=== PATIENT | female | born 1990 | race Caucasian/White ===

== ENCOUNTER 2017-04-07 06:00 | Inpatient (IN) ==
[2017-04-07] MEDS ORDERED: METHYLERGONOVINE 0.2 MG/ML INJECTION IM PRN (06:22)
[2017-04-07] MEDS ORDERED: ACETAMINOPHEN 500 MG TABLET PO PRN ×3 (06:22→14:20)
[2017-04-07] MEDS ORDERED: LIDOCAINE 1% (10mg/ml) 2mL INJ PF SDV ID PRN (06:22)
[2017-04-07] MEDS ORDERED: MAG-AL + SIM ORAL LIQUID 30ml PO PRN ×3 (06:22→14:20)
[2017-04-07] MEDS ORDERED: D5LR 1,000 ML IV PRN (06:22)
[2017-04-07] MEDS ORDERED: CALCIUM CARBONATE Chewable 500mg TABLET PO PRN ×3 (06:22→14:20)
[2017-04-07] MEDS ORDERED: OXYTOCIN DRIP 30 UNIT/500 ML ML IV PRN (06:22)
[2017-04-07] MEDS ORDERED: CARBOPROST 250 MCG/ML INJECTION IM PRN (06:22)
--- OUTSIDE RECORDS SUMMARY | 2017-04-07 06:23 | External Medical Summary | Continuity of Care Document ---
:1990 Author Organization [facility] Address [address] [place], [place] [id number] Phone Care Team Providers Name Role Phone Dary Barnes MD Unavailable Unavailable Allergies, Adverse Reactions, Alerts Substance Reaction Severity Status Penicillins Unknown Active Medications Medication Instructions Dosage Effective Dates Status Comments (start - stop) Fioricet 50 mg-300 take 1 - 2 capsule Not Available - Active mg-40 mg capsule by oral route every 4 hours as needed not to exceed 6 capsules per 24hrs COMPLETE - Active (unknown strength) Diphedryl 25 mg take 1 capsule by 25 MG - Active capsule oral route every hour as needed as needed Problems Condition Effective Dates (start - stop) Clinical Status Encntr screen for infections w sexl - mode of transmiss Encounter for screening for oth - infec/parastc diseases Encounter for suprvsn of normal - , first trimester Encounter for screening of - mother 8 weeks gestation of - Encounter for suprvsn of normal - , second trimester 24 weeks gestation of - Candidiasis of vulva and vagina Other pruritus Cluster headache syndrome, - unspecified, not intractable Encounter for suprvsn of normal - , third trimester 28 weeks gestation of - Anogenital pruritus, unspecified Vaginal Discharge or Lesion Encounter for suprvsn of normal - , first trimester 12 weeks gestation of - Encounter for suprvsn of normal - , third trimester 30 weeks gestation of - Encounter for suprvsn of normal - , third trimester 32 weeks gestation of - Encounter for suprvsn of normal - , third trimester 30 weeks gestation of - Asthma Active Migraines Active Active Procedures Procedure Date Unknown Results Test Name Date and Time Measure Units Reference Range Abnormal Flag Comments Unknown Advance Directives Directive Yes / No Effective Date File Name Unknown Encounters Encounter Practice Location Reason(s) Diagnoses Date Provider Care Team Description For Visit Members Mary Ellen Nick Encounter for Jolie Referring In Womens suprvsn of normal 2-201 Fabiola. Provider: Mayco MARCOS, , third 7 700 [address] [id number] weeks Medical Jolie L, 1522, gestation of Center [address] [place] [address], Daniel Alcazar [place], 120, [place] , [place], [facility] 120, [place], tel:[phone] [place], , [place]. [id number]. tel: tel:[phone] Mary Ellen Nick Encounter for Jolie Referring In Womens suprvsn of normal 0-201 Fabiola. Provider: Mayco MARCOS, , third 7 700 [address] [email or web address] weeks Medical Jolie L, 1522, gestation of Center [address] [place] [address], Daniel Alcazar [place], 120, [place] [id number], [place], [facility] 120, [place], tel:[phone] [place], , [place]. [id number]. tel: tel:[phone] Mary Ellen Nick Encounter for Jolie Referring In Womens Ultrasound suprvsn of normal 0-201 Fabiola. Provider: Mayco MARCOS, , third 7 700 [address] [id number] weeks Medical Jolie L, 1522, gestation of Center [address] [place], [place] [address]ta, Daniel Alcazar [place], 120, [place] [id number], [place], [facility] 120, [place], tel:[phone] [place], , [place]. [id number]. tel: tel:[phone] Mary Ellen Nick Hayden-2 Jolie In Womens 0-201 Fabiola. Health HEMANT, 7 700 PO Box Medical 15[address], [place] [address] [place], [facility] [place], 120, [id number], [place], [place], tel:[phone] , [place]. tel: [phone] Mary Ellen Nick Cluster headache Hayden-0 Jolie Referring In Womens syndrome, 6-201 Fabiola. Provider: Health HEMANT, unspecified, not 7 700 [address] PO Box intractableEncoun Medical Jolie L, 1522, ter for suprvsn Center [address] [place] [address], of normal Dr [facility] [place], , third 120, [place] [id number], [email or web address] weeks Nick [facility] 120, [place] gestation of [place], tel:+[phone] CT, , [place]. [id number]. tel: tel:[phone] Mary Ellen Nick Waylon-1 Jolie In Womens 2-201 Fabiola. Health HEMANT, 7 700 PO Box Medical 15[address], [place] [address] [place], [facility], 120, [id number], [place], [place], tel:[phone] , [place]. tel: [phone] Mary Ellen Nick Encounter for Waylon-0 Jolie Referring In Womens suprvsn of normal 8-201 Fabiola. Provider: Mayco MARCOS, , second 7 700 [address] [email or web address] weeks Medical Jolie L, 1522, gestation of [address], Dr [facility], 120, [place] [id number], [place] [facility] 120, [place], tel:[phone] [place], , [place]. [id number]. tel: tel:[phone] Mary Ellen Nick Encounter for Mar-1 Jolie Referring In Womens suprvsn of normal 5-201 Fabiola. Provider: Mayco MARCOS, , first 7 700 Fabi[address] [email or web address] weeks Medical Jolie L, 1522, gestation of [address], , [facility], 120, Center [id number], [place] [facility] 120, [place], tel:[phone], , [place]. [id number]. tel: tel:[phone] [facility] [place] Encntr screen for Aug- Jolie Referring In Womens infections w sexl 5-201 Fabiola. Provider: Health HEMANT, mode of 7 700 [address] PO Box transmissEncounte Medical Jolie L, 1522, r for screening Center [address] [place] [address], for oth , [facility], infec/parastc 120, Center [id number], [facility], [place] for suprvsn of [place], tel:[phone] normal , [phone] [place], [facility] , [place]. [id number]. trimesterEncounte tel: tel:[phone] r for [phone] screening of mother8 weeks gestation of [facility] [place] Candidiasis of Jan- Flynn Referring In Womens vulva and 5-201 Ashlyn. Provider: Mayco MARCOS, vaginaOther 6 700 [address] PO Box pruritus Medical Jolie L, 1522, Center [address], [facility], 120, Center [id number], [facility], [place], tel:[phone], , [place]. [id number]. tel: tel:[phone] Mary Ellen Nick Anogenital Arturo-0 Maddie Referring In Womens pruritus, 6-201 Kamini. Provider: Health HEMANT, unspecifiedVagina 6 700 Fabiola PO Box l Discharge or Medical Jolie L, 1522, Lesion Center [facility] Dr [place], [facility], 120, Center [id number], [facility] 120, [place], tel:[phone], , [place]. [id number]. tel: tel:[phone] Mary Ellen Nick Mar-3 Jolie Referring In Womens 0-201 Fabiola. Provider: Health HEMANT, 5 700 [address] PO Box Medical Jolie L, 1522, Center [address] [place], [facility], 120, [place] [id number], [facility] 120, [place], [place], tel: [phone] [place], , . [id number]. tel: tel: [phone] Mary Ellen Nick May- Jolie In Womens 6-201 Fabiola. [facility], 4 700 [facility] 1522, Center Dr [place], [facility], 120, [id number], [place], [place], tel: [phone] , [place]. tel: [phone] Family History Family Member Diagnosis Age At Onset No family history of Kidney Disease No family history of Venous Thrombosis No family history of Colon Cancer No family history of Pulmonary Embolism No family history of Osteoporosis No family history of Epilepsy No family history of Uterine Cancer No family history of Cardiovascular Disease No family history of Breast Cancer No family history of Lung Disease No family history of Stroke No family history of Ovarian Cancer No family history of Thyroid Disorder No family history of Diabetes No family history of Hypertension Immunizations Vaccine Date Status Comments Tdap completed Source: New Immunization Record Td (adult) preservative free completed Note: Invalid documented admin date was NULL/NULL/2012. ; Source: Source Unspecified Payers Payer name Insurance type Covered republican ID Authorization(s) [facility] [id number] [facility] [id number] Social History Type Description Quantity Date Captured Unknown Vital Signs Date / Height Weight BMI Pulse Blood Temperature Respiratory Body Head BMI Time: Rate Pressure Rate Surface Circumference percentile Area Unknown Chief Complaint And Reason For Visit Unknown Chief Complaint And Reason For Visit Reason For Referral Reason For Referral Unknown Plan Of Care Date Type Action Status Appointment Lashay Ley BOOKED Appointment Lashay Ley BOOKED Appointment Lashay Ley BOOKED Appointment Lashay Ley BOOKED Appointment Lashay Ley BOOKED Future Order: Radiology Order Ultrasound OB Follow-up ([id number]) Ordered Date Type Problem Goal Intervention Status Start Date Unknown. History Of Present Illness Encounter Date Complaint History Of Present Illness This patient has no known history of present illness Functional Status Encounter Date Functional Assessment Cognitive Assessment Unknown Medications Administered Medication Instructions Dosage Effective Dates (start - stop) Status Comments Drug Treatment Unknown Instructions Date Instruction Additional Information use of any medications (including supplements, vitamins, herbs, OTC drugs) smoking counseling domestic violence seat belt use childbirth classes / hospital facilities hospital registration genetic testing Zika virus assessment & precautions risk factors identified by history anticipated course of care nutrition and weight gain counseling, special diet toxoplasmosis precautions (cats / raw meat) new ob handbook [facility] docs HIV and other routine tests sexual activity exercise indications for ultrasound influenza vaccine environmental / work hazards travel tobacco (ask, advise, assess, assist and arrange) alcohol illicit / recreational drugs
--- OUTSIDE RECORDS SUMMARY | 2017-04-07 06:23 | External Medical Summary | Continuity of Care Document ---
:1990 Author Organization [facility] Address [address] [place], [place] [id number] Phone Care Team Providers Name Role Phone [...] Effective Dates (start - stop) Clinical Status Encounter for suprvsn of normal - , third trimester 35 weeks gestation of - Encntr screen for infections w sexl - [...] suprvsn of normal - , third trimester 37 weeks gestation of - Encounter for suprvsn of normal - , third trimester 30 weeks gestation of - Encounter for suprvsn of normal - , third trimester 34 weeks gestation of - 36 weeks gestation of - Encounter for suprvsn of normal - , third trimester Asthma Active Migraines Active Active Procedures Procedure Date OB Visit No Charge Cult, pathgnc orgnsm, screen Culture typing, immunologic method Suscept study, microdilut/agar TITA Results Test Name Date and Time Measure Units Reference Range Abnormal Flag Comments Panel Description: CULTURE, GROUP B STREP WITH SUSCEPTIBILITY CULTURE, GROUP B SEE NOTE A CULTURE, GROUP B STREP WITH STREP WITH 17:05:00 SUSCEPTIBILITY MICRO NUMBER: SUSCEPTIBILITY [id number] TEST STATUS: PRELIMINARY SPECIMEN SOURCE: VAGINAL/ANORECTAL SPECIMEN QUALITY: ADEQUATE RESULT: Group B Streptococcus isolated , susceptibility test report to follow.REPORT COMMENT:FASTING:UNKNOWNTest performed at [facility] [id number] [place] [address]Ttdtpqwx: MIMI HERNANDEZ DO,MPH Panel Description: CULTURE, GROUP B STREP WITH SUSCEPTIBILITY CULTURE, GROUP B SEE NOTE A CULTURE, GROUP B STREP WITH STREP WITH 17:05:00 SUSCEPTIBILITY MICRO NUMBER: SUSCEPTIBILITY [id number] TEST STATUS: FINAL SPECIMEN SOURCE: VAGINAL/ANORECTAL SPECIMEN QUALITY: ADEQUATE RESULT: Group B Streptococcus isolated Negative for inducible clindamycin resistance. Group B Strep INT TITA AMPICILLIN S <=0.25 CEFOTAXIME S <=0.12 CEFTRIAXONE S <=0.12 CLINDAMYCIN S <=0.25 LEVOFLOXACIN S 1 PENICILLIN S 0.12 VANCOMYCIN S 0.5S=Susceptible I=Intermediate R=Resistant *=Not TestedNR=Not Reported NN=See Therapy CommentsREPORT COMMENT:FASTING:UNKNOWNTest performed at [facility] [id number] [place] [address]Fywtamhf: MIMI HERNANDEZ DO,MPH Advance Directives Directive Yes / No Effective Date File Name Unknown Encounters Encounter Practice Location Reason(s) Diagnoses Date Provider Care Team Description For Visit Members Mary Ellen Nick Encounter for Sep-0 Jolie Referring In Womens suprvsn of normal 6-201 Fabiola. Provider: Mayco MARCOS, , third 7 700 [address] [email or web address] weeks Medical Jolie L, 1522, gestation of Center [address] [place] [address], Dr [facility], 120, [place] [id number], [facility] 120, [place], tel:[phone] [facility] , . [id number]. tel: tel:[phone] Mary Ellen Nick 36 weeks Feb-3 Jolie Referring In Womens gestation of 0-201 Fabiola. Provider: Mayco MARCOS, pregnancyEncounte 7 700 [place] PO Box r for suprvsn of Medical Jolie L, 1522, normal , Center [address] [place], third trimester Dr [facility] [place], 120, [place] [id number], [facility], [place], tel:[phone] [facility] , [place]. [id number]. tel: tel:[phone] Mary Ellen Nick Encounter for Feb- Jolie Referring In Womens suprvsn of normal 3-201 Fabiola. Provider: Mayco MARCOS, , third 7 700 [place] PO Box [email or web address] weeks Medical Jolie L, 1522, gestation of Center [address] [place], Dr [facility] [place], 120, [place] [id number], [facility] 120, [place], tel:[phone] [facility] , . [id number]. tel: tel: [phone] Mary Ellen Nick Encounter for Aug-1 Jolie Referring In Womens suprvsn of normal 6-201 Fabiola. Provider: Health HEMANT, , third 7 700 [place] Box [email or web address] weeks Medical Jolie L, 1522, gestation of Center [address] [place], Daniel Alcazar [place], 120, Center [id number], [place], Daniel 120, [place], tel:[phone] [place], , [place]. [id number]. tel: tel:[phone] Mary Ellen Nick Encounter for Aug-0 Jolie Referring In Womens suprvsn of normal 2-201 Fabiola. Provider: Mayco MARCOS, , third 7 700 [place] PO Box [email or web address] weeks Medical Jolie L, 1522, gestation of Center [address] [place], [place] [address], Daniel Alcazar [place], 120, Center [id number], [place] 120, [place], tel:[phone] [place], , [place]. [id number]. tel: tel:[phone] Mary Ellen Nick Encounter for Jan- Jolie Referring In Womens suprvsn of normal 0-201 Fabiola. Provider: Mayco MARCOS, , third 7 700 [address] PO Box weeks Medical Jolie L, 1522, gestation of Center [address] [place], Daniel Alcazar [place], 120, Center [id number], [place] 120, [place], tel:[phone] [place], , [place]. [id number]. tel: tel:[phone] Mary Ellen Nick Encounter for Jan-2 Jolie Referring In Womens Ultrasound suprvsn of normal 0-201 Fabiola. Provider: Mayco MARCOS, , third 7 700 [address] Box [id number] weeks Medical Jolie L, 1522, gestation of Center [address] [place], Daniel [place]azar [place], 120, Center [id number], [place], Daniel 120, [place], tel:[phone] [place], , [place]. [id number]. tel: tel:[phone] Mary Ellen Nick Cluster headache Hayden-0 Jolie Referring In Womens syndrome, 6-201 Fabiola. Provider: Health PA, unspecified, not 7 700 Fabi[address] PO Box intractableEncoun Medical Jolie L, 1522, ter for suprvsn Center [address] [place] [address], of normal Daniel Alcazar, , third 120, Center [id number], [email or web address] weeks Nick, [facility] 120, [place] gestation of [place], tel:[phone] [place], , [place]. [id number]. tel: tel:[phone] Mary Ellen Nick Waylon-1 Jolie In Womens 2-201 Fabiola. Health PA, 7 700 PO Box Medical 1522, Center [place], Daniel Alcazar [place], 120, [id number], [place], [place], tel:+ [phone] , [place]. tel: [phone] Mary Ellen Nick Encounter for Waylon-0 Jolie Referring In Womens suprvsn of normal 8-201 Fabiola. Provider: Health HEMANT, , second 7 700 [place] Box [email or web address] weeks Medical Jolie L, 1522, gestation of Center [address] [place] [address], Daniel [place]cazar, 120, [place] [id number], [place] [facility] 120, [place], tel:[phone] [place], , [place]. [id number]. tel: tel:[phone] Mary Ellen Nick Encounter for Mar-1 Jolie Referring In Womens suprvsn of normal 5-201 Fabiola. Provider: Health HEMANT, , first 7 700 [place]iola PO Box [id number] weeks Medical Jolie Riggins, 1522, gestation of Center [address] [place] [address], Daniel Alcazar, 120, [place] [id number], [place] [facility] 120, [place], tel:[phone] [place], , [place]. [id number]. tel: tel:[phone] Mary Ellen Nick Encntr screen for Feb-1 Jolie Referring In Womens infections w sexl 5-201 Fabiola. Provider: Mayco MARCOS, mode of 7 700 [place] PO Box transmissEncounte Medical Jolie L, 1522, r for screening Center [address] [place] [address], for oth , [facility], infec/parastc 120, Center [id number], [facility] 120, [place] for suprvsn of [place], tel:+[phone] normal , [phone] [place], first , [place]. [id number]. trimesterEncounte tel: tel:[phone] r for [phone] screening of mother8 weeks gestation of [facility] [place] Candidiasis of Flynn Referring In Womens vulva and -201 Ashlyn. Provider: Mayco MARCOS, vaginaOther 6 700 Fabi[address] PO Box pruritus Medical Jolie L, 1522, Center [facility] [address] [place], [facility], 120, Center [id number], [facility] 120, [place], tel:[phone] [place], , [place]. [id number]. tel: tel:[phone] [facility] [place] Anogenital Arturo- Maddie Referring In Womens pruritus, 6-201 Kamini. Provider: Mayco MARCOS, unspecifiedVagina 6 700 Fabiola PO Box l Discharge or Medical Jolie L, 1522, Lesion Center [facility] [address] [place], [facility], 120, Center [id number], [facility] 120, [place], tel: [phone] [place], , [place]. [id number]. tel: tel:[phone] [facility] [place] Sep-3 Jolie Referring In Womens 0-201 Fabiola. Provider: Mayco MARCOS, 5 700 Fabiola PO Box Medical Jolie L, 1522, Center [facility] [address] [place], [facility], 120, Center [id number], [facility] 120, [place], tel:[phone] [place], , [place]. [id number]. tel: tel:[phone] [facility] [place] Jolie In Womens 6-201 [facility], 4 700 PO [facility] 1522, [place] Dr [place] [facility] [place], 120, [id number], [place], [place], [phone] , [place]. tel: [phone] Family History Family Member Diagnosis Age At [...] Comments Tdap completed Source: New Immunization Record Tdap completed Source: New Immunization Record Td (adult) preservative free completed Note: Invalid documented admin date was NULL/NULL/2012. ; Source: Source Unspecified Payers Payer name Insurance type Covered republican ID Authorization(s) [facility] [id number] [facility] [id number] [facility] [id number] Social History Type Description Quantity Date Captured Alcohol Use Details No Caffeine Use Details Unknown Tobacco Use Status Smoking Status Former smoker Vital Signs Date / Height Weight BMI Pulse Blood Temperature Respiratory Body Head BMI Time: Rate Pressure Rate Surface Circumference percentile Area Unknown Chief Complaint And Reason For Visit Unknown Chief Complaint And Reason For Visit Reason For Referral Reason For Referral Unknown Plan Of Care Date Type Action Status Future Order: Radiology Order Ultrasound OB Follow-up ([id number]) Ordered Date Type Problem Goal Intervention Status [...] nutrition and weight gain counseling, special diet new ob handbook [facility] docs HIV and other routine tests toxoplasmosis precautions (cats / raw meat) sexual activity exercise indications for ultrasound influenza vaccine environmental / work hazards travel tobacco (ask, advise, assess, assist and arrange) alcohol illicit / recreational drugs
--- OUTSIDE RECORDS SUMMARY | 2017-04-07 06:23 | External Medical Summary | Continuity of Care Document ---
:1990 Author Organization [facility] [employer] [facility] Address [address] [place], [place] [id number] Phone Care Team Providers Name Role Phone [...] third trimester 32 weeks gestation of - Encntr screen for [...] third trimester 34 weeks gestation of - Encounter for suprvsn of normal - , third trimester 30 weeks gestation of - Asthma Active Migraines Active Active Procedures Procedure Date OB Visit No Charge Results Test Name Date and Time Measure Units Reference Range Abnormal Flag Comments Unknown Advance Directives Directive Yes / No Effective Date File Name Unknown Encounters Encounter Practice Location Reason(s) Diagnoses Date Provider Care Team Description For Visit Members Mary Ellen Nick Encounter for Jolie Referring In Womens suprvsn of normal 6-201 Fabiola. Provider: Mayco MARCOS, , third 7 700 [address] [email or web address] weeks [place] Riggins, 1522, gestation of Center [address] [place] [address], Dr [facility], 120, [place] [id number], [place] [facility] 120, [place], tel:[phone] [place], , [place]. [id number]. tel: tel:[phone] Mary Ellen Nick Encounter for Jolie Referring In Womens suprvsn of normal 2-201 Fabiola. Provider: Mayco MARCOS, , third 7 700 Fabi[address] [email or web address] weeks Deys[place] Riggins, 1522, gestation of Center [address] [place] [address], Dr [facility] [place], 120, [place] [id number] [facility] 120, [place], tel:[phone] [facility] , . [id number]. tel: tel:[phone] Mary Ellen Nick Encounter for Jolie Referring In Womens suprvsn of normal 0-201 Fabiola. Provider: Mayco MARCOS, , third 7 700 Fabiola [address] [id number] weeks Medical Jolie Riggins, 1522, gestation of [address], Dr [facility], 120, Center [id number], [facility] 120, [place], tel:[phone] [place], , [place]. [id number]. tel: tel:[phone] Mary Ellen Nick Encounter for Hayden-2 Jolie Referring In Womens Ultrasound suprvsn of normal 0-201 Fabiola. Provider: Health PA, , third 7 700 Fabiola [address] [email or web address] weeks Medical Jolie L, 1522, gestation of Center [address] [place] [address], Dr [facility] [place], 120, Center [id number], [place], [facility] 120, [place], tel:[phone] [place], , [place]. [id number]. tel: tel:+ [phone] Mary Ellen Nick Cluster headache Hayden-0 Jolie Referring In Womens syndrome, 6-201 Fabiola. Provider: Health PA, unspecified, not 7 700 Fabiola PO Box intractableEncoun Medical Jolie L, 1522, ter for suprvsn Center [address] [place] [address], of normal Dr [facility] [place], , third 120, Center [id number], [email or web address] weeks [place], [facility] 120, [place] gestation of [place], tel:+ [phone] [place], , [place]. [id number]. tel: tel:[phone] Mary Ellen Nick Waylon-1 Jolie In Womens 2-201 Fabiola. Health HEMANT, 7 700 PO Box Medical 1522, Center [place], Dr [facility] [place], 120, [id number], [place], [place], tel:+ [phone] , [place]. tel: [phone] Mary Ellen Nick Encounter for Waylon-0 Jolie Referring In Womens suprvsn of normal 8-201 Fabiola. Provider: Health PA, , second 7 700 Fabiola PO Box [id number] weeks Medical Jolie L, 1522, gestation of Center [address] [place], [place] [id number], Dr [facility] [place], 120, Center [id number], [place], [facility] 120, [place], tel:[phone] [place], , [place]. [id number]. tel: tel:[phone] [facility] [place] Encounter for Sep- Jolie Referring In Womens suprvsn of normal 5-201 Fabiola. Provider: Mayco MARCOS, , first 7 700 Fabiola PO Box [id number] weeks Medical Jolie Riggins, 1522, gestation of Center [address] [place] [address], , [facility], 120, [place] [id number], [place] [address], [place], tel:[phone] [place], , [place]. [id number]. tel: tel:[phone] [facility] [place] Encntr screen for Aug- Jolie Referring In Womens infections w sexl 5-201 Fabiola. Provider: Mayco MARCOS, mode of 7 700 Fabiola PO Box transmissEncounte Medical Jolie L, 1522, r for screening Center [address] [place] [address], for oth , [facility], infec/parastc 120, [place] [id number], diseasesEncounter [place] [address], [place] for suprvsn of [place], [place], tel:[phone] normal , [phone] [place], first , [place]. [id number]. trimesterEncounte tel: tel:[phone] r for [phone] screening of mother8 weeks gestation of [facility] [place] Candidiasis of Jan-0 Flynn Referring In Womens vulva and -201 Ashlyn. Provider: Mayco MARCOS, vaginaOther 6 700 Fabiola PO Box pruritus Deysi Riggins, 1522, Center [facility] Dr [place], [facility], 120, [place] [id number], [facility], [place], tel:[phone] [place], , [place]. [id number]. tel: tel:[phone] Mary Ellen Nick Anogenital Arturo-0 Maddie Referring In Womens pruritus, 6-201 Kamini. Provider: Mayco MARCOS, unspecifiedVagina 6 700 Fabiola PO Box l Discharge or Medical Jolie Riggins, 1522, Lesion Center [facility] Dr [place], [facility], 120, [place] [id number], [place], [facility] 120, [place], tel: [phone] [place], , [place]. [id number]. tel: tel: [phone] [facility] [place] Sep-3 Jolie Referring In Womens 0-201 Fabiola. Provider: Health [place], 5 700 Fabiola PO Box Medical Jolie L, 1522, [place] [address], [facility], 120, [place] [id number], [place], [facility] 120, [place], [place], tel:[phone] [place], , . [id number]. tel: tel: [phone] [facility] [place] May-2 Jolie In Womens 6-201 Fabiola. Health PA, 4 700 PO Box Medical 1522, [place] Dr Armin, [facility], 120, [id number], [place], [place], tel: [phone] , [place]. tel: [phone] Family History Family Member Diagnosis Age At [...] completed Note: Invalid documented admin date was NULL//2012. ; Source: Source Unspecified Payers Payer name Insurance type Covered constitution party ID Authorization(s) [facility] [place] [id number] [facility] [place] [id number] [facility] [id number] Social History Type Description Quantity Date Captured [...] Of Care Date Type Action Status Appointment LowerLashay BOOKED Appointment LowerLashay BOOKED Appointment Lower, Lashay BOOKED Appointment LowerLashay BOOKED Future Order: Radiology Order Ultrasound OB Follow-up ([id number]) Ordered Date Type Problem Goal Intervention Status [...]
--- OUTSIDE RECORDS SUMMARY | 2017-04-07 06:23 | External Medical Summary | Continuity of Care Document ---
:1992 Author Organization [email or web address] [facility] Address [address] [place], [place] [id number] Phone Care Team Providers Name Role Phone [...] third trimester 30 weeks gestation of - Encntr screen for [...] third trimester 32 weeks gestation of - Asthma Active Migraines [...] , third 7 700 Fabiola [address] Box [id number] weeks Medical Jolie L, 1522, gestation of Center [address] [place] [address], [place], 120, [place] , [place] [email or web address] 120, [place], tel:[phone] [place], , . [id number]. tel: tel:[phone] Mary Ellen Nick Encounter for Jolie Referring In Womens suprvsn of normal 0-201 Fabiola. Provider: Mayco MARCOS, , third 7 700 Fabi[place] [address] Box [email or web address] weeks Medical Jolie L, 1522, gestation of Center [address] [place] [address], [place], 120, [place] [id number], [place] [facility] [[email or web address] 120, [place], tel:[phone] [place], , . [id number]. tel: tel:[phone] Mary Ellen Nick Encounter for Jolie Referring In Womens Ultrasound suprvsn of normal 0-201 Fabiola. Provider: Mayco MARCOS, , third 7 700 Fabi[place] PO Box [email or web address] weeks Medical Jolie L, 1522, gestation of Center [address] [place] [address], [place], 120, [place] [id number], [place] [facility] [[email or web address] 120, [place], tel:[phone] [place], , [place]. [id number]. tel: tel:[phone] Mary Ellen Nick Cluster headache Hayden-0 Jolie Referring In Womens syndrome, 6-201 Fabiola. Provider: Health PA, unspecified, not 7 700 Fabi[place] PO Box intractableEncoun Medical Jolie L, 1522, ter for suprvsn Center [address] [place] [address], of normal Dr [facility] [[email or web address]] [place], , third 120, [place] [id number], [email or web address] weeks [place] [facility] [[email or web address]] 120, [place] gestation of [place], tel:[phone] [place], , [place]. [id number]. tel: tel:[phone] Mary Ellen Nick Waylon-1 Jolie In Womens 2-201 Fabiola. Health HEMANT, 7 700 PO Box Medical 1522, [place], [place] Alcazar [place], 120, [id number], [place], [place], tel:[phone] , [place]. tel: [phone] Mary Ellen Nick Encounter for Waylon-0 Jolie Referring In Womens suprvsn of normal 8-201 Fabiola. Provider: Health HEMANT, , second 7 700 Fabiola PO Box [id number] weeks Medical Jolie Riggins, 1522, gestation of [address], Dr [facility] [[email or web address]] [place], 120, [place] [id number], [place] [facility] [[email or web address]] 120, [place], tel:[phone] [place], , [place]. [id number]. tel: tel:[phone] Mary Ellen Nick Encounter for Mar-1 Jolie Referring In Womens suprvsn of normal 5-201 Fabiola. Provider: Health HEMANT, , first 7 700 Fabiola PO Box [email or web address] weeks Medical Jolie Riggins, 1522, gestation of [address], [place] Alcazar [place], 120, [place] [id number], [place] [facility] [[email or web address]] 120, [place], tel:[phone] [place], , [place]. [id number]. tel: tel:[phone] Mary Ellen Nick Encntr screen for Feb-1 Jolie Referring In Womens infections w sexl 5-201 Fabiola. Provider: Health HEMANT, mode of 7 700 Fabiola PO Box transmissEncounte Medical Jolie L, 1522, r for screening Center [address] [place] [address], for oth , [facility], infec/parastc 120, Center [id number], [facility], [place] for suprvsn of [place], tel:[phone] normal , [place], first , [place]. [id number]. trimesterEncounte tel: tel:[phone] r for [phone] screening of mother8 weeks gestation of [facility] [place] Candidiasis of Flynn Referring In Womens vulva and 5-201 Ashlyn. Provider: Mayco MARCOS, vaginaOther 6 700 Fabiola PO Box pruritus Medical Jolie L, 1522, Center [facility] Dr Arm[place], [facility], 120, [place] [id number], [facility], [place], tel:[phone] [place], , [place]. [id number]. tel: tel:[phone] Mary Ellen Nick Anogenital Arturo-0 Maddie Referring In Womens pruritus, 6-201 Kamini. Provider: Mayco MARCOS, unspecifiedVagina 6 700 Fabiola PO Box l Discharge or Medical Jolie L, 1522, Lesion Center [facility] Dr [place], [facility], 120, [place] [id number], [facility], [place], tel:[phone] [place], , [place]. [id number]. tel: tel:[phone] Mary Ellen Nick Sep- Jolie Referring In Womens 0-201 Fabiola. Provider: Mayco MARCOS, 5 700 Fabiola PO Box Medical Jolie L, 1522, Center [facility] Dr Arm[place], [facility], 120, Center [id number], [facility], [place], tel:[phone] [facility] , [place]. [id number]. tel: tel:[phone] [facility] [place] [facility] In [facility] 6-201 [facility], [address] [facility] 1522, [place] Dr [place], [facility], 120, [id number], [place], [place], tel:[phone] , [place]. tel: [phone] Family History Family Member Diagnosis Age At [...] Unspecified Payers Payer name Insurance type Covered alliance party ID Authorization(s) [facility] [id number] [facility] [id number] Social History Type Description Quantity Date Captured Alcohol Use Details No Caffeine Use Details Unknown Tobacco Use Status Smoking Status Former smoker Vital Signs Date / Height Weight BMI Pulse Blood Temperature Respiratory Body Head BMI Time: Rate Pressure Rate Surface Circumference percentile Area 152.50 27.0 119/69 2017 lbs 1 mm[Hg] 1:51 kg/m PM eter (2) 1 1:49 kg/m PM eter (2) Chief Complaint And Reason For Visit Unknown Chief Complaint And Reason For Visit Reason For Referral Reason For Referral Unknown Plan Of Care Date Type Action Status Appointment LowerLashay BOOKED Appointment LowerLashay BOOKED Appointment Lashay Ley BOOKED Appointment LowerLahsay BOOKED Appointment Lashay Ley BOOKED Future Order: Radiology Order Ultrasound OB Follow-up ([id number]) Ordered Date Type Problem Goal Intervention Status [...]
--- OUTSIDE RECORDS SUMMARY | 2017-04-07 06:23 | External Medical Summary | Continuity of Care Document ---
:1990 Author Organization [facility] [employer] [facility] Address [address] [place], [place] [phone] Phone Care Team Providers Name Role Phone [...] Active Migraines Active Active Procedures Procedure Date Ultrasnd preg uterus, flwup/repeat Results Test Name Date and Time Measure Units Reference Range Abnormal Flag Comments Unknown Advance Directives Directive Yes / No Effective Date File Name Unknown Encounters Encounter Practice Location Reason(s) Diagnoses Date Provider Care Team Description For Visit Members Mary Ellen Nick Encounter for Jolie Referring In Womens suprvsn of normal 2-201 Fabiola. Provider: Mayco MARCOS, , third 7 700 Fabiola [address] Box [id number] weeks Medical Jolie L, 1522, gestation of Center [address] [place] [address], [place] Alcazar, 120, [place] , [place] [facility] 120, [place], tel:[phone] [facility] , . [id number]. tel: tel:[phone] Mary Ellen Nick Encounter for Jolie Referring In Womens suprvsn of normal 0-201 Fabiola. Provider: Mayco MARCOS, , third 7 700 [place]abil[place] PO Box weeks Medical Jolie L, 1522, gestation of Center [address] [place] [address], [place]azar, 120, [place] [id number], [place] [facility] 120, [place], tel: [phone] [facility] , . [id number]. tel: tel:[phone] Mary Ellen Nick Encounter for Jolie Referring In Womens Ultrasound suprvsn of normal 0-201 Fabiola. Provider: Mayco MARCOS, , third 7 700 Fabiola PO Box [id number] weeks Medical Jolie L, 1522, gestation of Center [address] [place] [address], [place], 120, [place] [id number], [place] [facility] 120, [place], tel:+ [phone] [place], , [place]. [id number]. tel: tel: [phone] [facility] [place] Cluster headache Hayden-0 Jolie Referring In Womens syndrome, 6-201 Fabiola. Provider: Health HEMANT, unspecified, not 7 700 Fabiola PO Box intractableEncoun Medical Jolie L, 1522, ter for suprvsn Center [address] [place] [address], of normal Dr [facility] [place], , third 120, Center [id number], [id number] weeks [place] [facility] 120, [place] gestation of [place], tel:+ [phone] [place], , [place]. [id number]. tel: tel: [phone] [facility] [place] Waylon-1 Jolie In Womens 2-201 Fabiola. Health HEMANT, 7 700 PO Box Medical 1522, [place], Dr [facility], 120, [id number], [place], [place], tel:[phone] , [place]. tel: [phone] Mary Ellen Nick Encounter for Waylon-0 Jolie Referring In Womens suprvsn of normal 8-201 Fabiola. Provider: Health HEMANT, , second 7 700 Fabiola PO Box [email or web address] weeks Medical Jolie Riggins, 1522, gestation of Center [address] [place] [address], Dr [facility] [place], 120, [place] [id number], [place] [facility] 120, [place], tel:[phone] [place], , [place]. [id number]. tel: tel:[phone] Mary Ellen Nick Encounter for Mar-1 Jolie Referring In Womens suprvsn of normal 5-201 Fabiola. Provider: Health PA, , first 7 700 Fabiola PO Box [email or web address] weeks Medical Jolie Riggins, 1522, gestation of [address], Dr [facility] [place], 120, [place] [id number], [place] [facility] 120, [place], tel:[phone] [place], , [place]. [id number]. tel: tel:[phone] Mary Ellen Nick Encntr screen for Aug- Jolie Referring In Womens infections w sexl 5-201 Fabiola. Provider: Mayco MARCOS, mode of 7 700 Fabiola PO Box transmissEncounte Medical Jolie L, 1522, r for screening Center [address] [place] [address], for oth , [facility] [place], infec/parastc 120, Center [id number], diseasesEncounter [place] [facility] 120, [place] for suprvsn of [place], tel:[phone] normal , [phone] [place], first , [place]. [id number]. trimesterEncounte tel: tel:[phone] r for [phone] screening of mother8 weeks gestation of [facility] [place] Candidiasis of Jan- Flynn Referring In Womens vulva and -201 Ashlyn. Provider: Mayco MARCOS, vaginaOther 6 700 Fabiola PO Box pruritus Medical Jolie L, 1522, Center [facility] Dr Armin, [facility], 120, [place] [id number], [place] [facility] 120, [place], tel:[phone] [place], , [place]. [id number]. tel: tel:[phone] Mary Ellen Nick Anogenital Arturo-0 Maddie Referring In Womens pruritus, 6-201 Kamini. Provider: Mayco MARCOS, unspecifiedVagina 6 700 Fabiola PO Box l Discharge or Medical Jolie L, 1522, Lesion Center [facility] Dr [place], [facility], 120, [place] [id number], [place] [facility] 120, [place], tel:[phone] [place], , [place]. [id number]. tel: tel:[phone] Mary Ellen Nick Mar-3 Jolie Referring In Womens 0-201 Fabiola. Provider: Mayco MARCOS, 5 700 Fabiola PO Box Medical Jolie [place], 1522, Center [facility] Dr Arm[place], [facility], 120, [place] [id number], [place] [facility] 120, [place], tel:[phone] [facility] , [place]. [id number]. tel: tel:[phone] [facility] [place] [facility] In Womens 6-201 [facility], 4 700 [facility] 1522, [place] Dr Armin, [place], 120, [id number], [facility] [place], tel:[phone] [place] [address]. tel: [phone] Family History Family Member Diagnosis Age At [...] name Insurance type Covered republican ID Authorization(s) [facility] [id number] [facility] [id number] Social History Type Description Quantity Date Captured Unknown Vital Signs Date / Height Weight BMI Pulse Blood Temperature Respiratory Body Head BMI Time: Rate Pressure Rate Surface Circumference percentile Area Unknown Chief Complaint And Reason For Visit Unknown Chief Complaint And Reason For Visit Reason For Referral Reason For Referral Unknown Plan Of Care Date Type Action Status Appointment Lashay Ley BOOKED Appointment LowerLashay BOOKED Appointment Lashay Lye BOOKED Appointment LowerLashay BOOKED Appointment Lashay Ley BOOKED Future Order: Radiology Order Ultrasound OB Follow-up ([id number]) Ordered Date Type Problem Goal Intervention Status [...]
--- OUTSIDE RECORDS SUMMARY | 2017-04-07 06:23 | External Medical Summary | Continuity of Care Document ---
:1990 Author Organization [facility] Address [address] [place], [place] [id number] Phone Care Team Providers Name Role Phone Dary Barnes MD Unavailable Unavailable Allergies, Adverse Reactions, Alerts Substance Reaction Severity Status Penicillins Unknown Active Medications Medication Instructions Dosage Effective Dates Status Comments (start - stop) Fioricet 50 take 1 - 2 capsule Not Available - Active mg-300 mg-40 mg by oral route capsule every 4 hours as needed not to exceed 6 capsules per 24hrs COMPLETE - Active (unknown strength) Diphedryl 25 mg take 1 capsule by 25 MG - Active capsule oral route every hour as needed as needed Tylenol-Codeine take 1 tablet by Not Available - No Longer #3 300 mg-30 mg ORAL route every Active tablet 4 - 6 hours as needed Problems Condition Effective Dates (start - stop) Clinical Status Cluster headache syndrome, - unspecified, not intractable Encounter for suprvsn of normal - , third trimester 28 weeks gestation of - Encntr screen for infections w sexl - mode of transmiss Encounter for screening for oth - infec/parastc diseases Encounter for suprvsn of normal - , first trimester Encounter for screening of - mother 8 weeks gestation of - Encounter for suprvsn of normal - , second trimester 24 weeks gestation of - Candidiasis of vulva and vagina Other pruritus Anogenital pruritus, unspecified Vaginal Discharge or Lesion [...] , third 7 [address] [email or web address] weeks Medical Jolie L, 1522, gestation of Center [address], Daniel Alcazar [place], 120, [place] [id number], [place] [facility] 120, [place], tel:[phone] [facility] , [place]. [id number]. tel: tel:[phone] Mary Ellen Nick Encounter for Jolie Referring In Womens Ultrasound suprvsn of normal 0-201 Fabiola. Provider: Mayco MARCOS, , third 7 700 [address] weeks Medical Jolie L, 1522, gestation of Center [address], Daniel Alcazar, 120, [place] [id number], [place] [facility] 120, [place], tel:[phone] [facility] , [place]. [id number]. tel: tel:[phone] Mary Ellen iNck Cluster headache Jolie Referring In Womens syndrome, 6-201 Fabiola. Provider: Mayco MARCOS, unspecified, not 7 [address] intractableEncoun Medical Jolie L, 1522, ter for suprvsn Center [address] [place] [address], of normal Daniel Alcazar, , third 120, [place] [id number], [email or web address] weeks [place] [facility] 120, [place] gestation of [place], tel:+ [phone] [place], , [place]. [id number]. tel: tel:[phone] Mary Ellen Nick Waylon-1 Jolie In Womens 2-201 Fabiola. Health [place], 7 700 PO [address] Medical 1522, [facility], , [facility] [place], 120, [id number], [place], [place], tel:[phone] , [place]. tel: [phone] Mary Ellen Nick Encounter for Waylon-0 Jolie Referring In Womens suprvsn of normal 8-201 Fabiola. Provider: Health HEMANT, , second 7 700 [address] [email or web address] weeks Medical Jolie L, 1522, gestation of [address], , [facility] [place], 120, Center , [place] [facility] 120, [place], tel:[phone] [place], , [place]. [id number]. tel: tel:[phone] Mary Ellen Nick Encounter for Mar-1 Jolie Referring In Womens suprvsn of normal 5-201 Fabiola. Provider: Health HEMANT, , first 7 700 [address] [email or web address] weeks Medical Jolie L, 1522, gestation of [address], , [facility] [place], 120, Center [id number], [place] [facility] 120, [place], tel:[phone] [place], , [place]. [id number]. tel: tel:[phone] Mary Ellen Nick Encntr screen for Feb-1 Jolie Referring In Womens infections w sexl 5-201 Fabiola. Provider: Health HEMANT, mode of 7 700 [address] transmissEncounte Medical Jolie L, 1522, r for screening [address], for oth , [facility] [place], infec/parastc 120, [place] [id number], diseases[facility]ounter [facility], [place] for suprvsn of [place], tel:[phone] normal , [phone] [place], [facility] , [place]. [id number]. trimesterEncounte tel: tel:[phone] r for [phone] screening of mother8 weeks gestation of Associates [place] Candidiasis of Flynn Referring In Womens vulva and Ashlyn. Provider: Health HEMANT, vaginaOther 6 700 [address] pruritus Medical Jolie L, 1522, Center [facility] [address], [facility], 120, [place] [id number], [place] [address], [place], tel: [phone] [place], , [place]. [id number]. tel: tel:[phone] Mary Ellen Nick Anogenital Jul- Maddie Referring In Womens pruritus, -201 Kamini. Provider: Mayco MARCOS, unspecifiedVagina 6 700 [address] l Discharge or Medical Jolie L, 1522, Lesion Center [facility] [address] [place], [facility], 120, [place] [id number], [place] [address], [place], tel: [phone] [place], , [place]. [id number]. tel: tel: [phone] Mary Ellen Nick Sep- Jolie Referring In Womens 0-201 [address]. Provider: Mayco MARCOS, 5 700 [address] Medical Jolie L, 1522, Center [address], [facility], 120, [place] [id number], [facility] 120, [place], tel: [phone] [place], , [place]. [id number]. tel: tel:[phone] Mary Ellen Nick May- Jolie In Womens 6-201 [address]. Health HEMANT, 4 700 PO [address] Medical 1522, Center Dr [place], [facility], 120, [id number], [place], tel:[phone] , [place]. tel: [phone] Family History Family Member Diagnosis Age At [...] Unspecified Payers Payer name Insurance type Covered green party ID Authorization(s) [facility] [id number] [facility] [id number] Social History Type Description Quantity Date Captured Alcohol Use Details No Caffeine Use Details Unknown Tobacco Use Status Smoking Status Former smoker Vital Signs Date / Height Weight BMI Pulse Blood Temperature Respiratory Body Head BMI Time: Rate Pressure Rate Surface Circumference percentile Area 8 3:54 kg/m PM eter (2) 149.10 26.4 108 lbs 1 mm[Hg] 4:21 kg/m PM eter (2) 149.10 26.4 108 lbs 1 mm[Hg] 3:55 kg/m PM eter (2) Chief Complaint And Reason For Visit Unknown Chief Complaint And Reason For Visit Reason For Referral Reason For Referral Unknown Plan Of Care Date Type Action Status Appointment Lower, Lashay BOOKED Appointment Lower, Lashay BOOKED Appointment Lower, Lashay BOOKED Appointment Lower, Lashay BOOKED Appointment Lower, Lashay BOOKED Appointment Lower, Lashay BOOKED Future Order: Radiology Order Ultrasound OB Follow-up ([id number]) Ordered Date Type Problem Goal Intervention Status [...] identified by history anticipated course of care new ob handbook [facility] docs HIV and other routine tests nutrition and weight gain counseling, special diet toxoplasmosis precautions (cats / raw meat) sexual activity exercise indications for ultrasound influenza vaccine environmental / work hazards travel tobacco (ask, advise, assess, assist and arrange) alcohol illicit / recreational drugs
--- OUTSIDE RECORDS SUMMARY | 2017-04-07 06:24 | External Medical Summary | Continuity of Care Document ---
:1990 Author Organization [facility] Address [address] [place], [place] [id number] Phone Care Team Providers Name Role Phone [...] third trimester 34 weeks gestation of - Encntr screen for [...] third trimester 32 weeks gestation of - 35 weeks gestation of - Encounter for suprvsn of normal - , third trimester Encounter for suprvsn of normal - , third trimester 36 weeks gestation of - Asthma Active Migraines Active Active Procedures Procedure Date OB Visit No Charge Immuniz admnin, 1 vac, sngl/combo 19 Yrs + TDAP VACCINE >7 IM Results Test Name Date and Time Measure Units Reference Range Abnormal Flag Comments Unknown Advance Directives Directive Yes / No Effective Date File Name Unknown Encounters Encounter Practice Location Reason(s) Diagnoses Date Provider Care Team Description For Visit Members Mary Ellen Nick Encounter for Jolie Referring In Womens suprvsn of normal 6-201 [address]. Provider: Mayco MARCOS, , third 7 700 [address] [email or web address] weeks Medical Jolie L, 1522, gestation of Center [address] [place] [address], Daniel Alcazar [place], 120, [place] [id number], [place] [facility] [place] 120, [place], tel:[phone] [place], [phone] , . [id number]. tel: tel:[phone] Mary Ellen Nick Encounter for Jolie Referring In Womens suprvsn of normal 0-201 Fabiola. Provider: [facility], , third 7 700 [address] [email or web address] weeks Medical Jolie L, 1522, gestation of Center [address] [place], Daniel Alcazar, 120, [place] [id number], [place] [facility], [place] 120, [place], tel:+ [phone] [place], , [place]. [id number]. tel: tel:[phone] Mary Ellen Nick 35 weeks Aug-2 Jolie Referring In Womens gestation of 3-201 Fabiola. Provider: Mayco MARCOS, pregnancyEncounte 7 700 [address] r for suprvsn of Medical Jolie L, 1522, normal , Center [address] [place] [address], third trimester , [facility] [place], 120, Center [id number], [place], [facility], [place] 120, [place], tel:[phone] [place], , [place]. [id number]. tel: tel:[phone] Mary Ellen Nick Encounter for Feb- Jolie Referring In Womens suprvsn of normal 6-201 Fabiola. Provider: Mayco MARCOS, , third 7 700 [address] [email or web address] weeks Medical Jolie L, 1522, gestation of Center [address] [place] [address], , [facility], 120, Center [id number], [place], [facility], [place] 120, [place], tel:[phone] [place], , [place]. [id number]. tel: tel:[phone] Mary Ellen Nick Encounter for Feb-0 Jolie Referring In Womens suprvsn of normal 2-201 [address]iola. Provider: Mayco MARCOS, , third 7 700 [address] [email or web address] weeks Medical Jolie L, 1522, gestation of Center [address] [place] [address], , [facility] [place], 120, Center [id number], [place], [facility], [place] 120, [place], tel:[phone] [place], , [place]. [id number]. tel: tel:[phone] Mary Ellen Nick Encounter for Jolie Referring In Womens suprvsn of normal 0-201 Fabiola. Provider: Mayco MARCOS, , third 7 700 [address] [email or web address] weeks Medical Jolie L, 1522, gestation of Center [address] [place] [address], , [facility] [place], 120, Center [id number], [place], [facility], [place] 120, [place], tel:[phone] [place], , [place]. [id number]. tel: tel:[phone] Mary Ellen Nick Encounter for Hayden-2 Jolie Referring In Womens Ultrasound suprvsn of normal 0-201 Fabiola. Provider: Health [place], , third 7 700 [address] Box [email or web address] weeks Medical Jolie L, 1522, gestation of Center [address] [place] [address], , [facility] [place], 120, Center [id number], [place], [facility], [place] 120, [place], tel:[phone] [place], , [place]. [id number]. tel: tel:[phone] Mary Ellen Nick Cluster headache Hayden-0 Jolie Referring In Womens syndrome, 6-201 Fabiola. Provider: Health [place], unspecified, not 7 700 [address] PO Box intractableEncoun Medical Jolie L, 1522, ter for suprvsn Center [address] [place] [address], of normal Dr [facility] [place], , third 120, Center [id number], [email or web address] weeks [place], [facility], [place] 120, [place] gestation of [place], tel:+ [phone] [place], , [place]. [id number]. tel: tel:[phone] Mary Ellen Nick Waylon-1 Jolie In Womens 2-201 Fabiola. Health [place], 7 700 PO Box Medical 1522, Center Dr [place], [facility], [place], 120, [id number], [place], [place], tel:[phone] , [place]. tel: [phone] Mary Ellen Nick Encounter for Waylon-0 Jolie Referring In Womens suprvsn of normal 8-201 Fabiola. Provider: Health [place], , second 7 700 [address] [email or web address] weeks Medical Jolie L, 1522, gestation of Center [address] [place], [place] [id number], Dr [facility] [place], 120, Center [id number], [place], [facility], [place] 120, [place], tel:[phone] [place], , [place]. [id number]. tel: tel:[phone] Mary Ellen Nick Encounter for Sep- Jolie Referring In Womens suprvsn of normal -201 Fabiola. Provider: Mayco MARCOS, , first 7 700 [address] PO Box weeks Medical Jolie L, 1522, gestation of Center [facility] [place], , [facility], 120, [place] [id number], [place] [address], [place], tel:+ [phone] [place], , [place]. [id number]. tel: tel:[phone] Mary Ellen Nick Encntr screen for Aug- Jolie Referring In Womens infections w sexl -201 Fabiola. Provider: Mayco MARCOS, mode of 7 700 [address] transmissEncounte Medical Jolie L, 1522, r for screening Center [address] [place] [address], for oth , [facility], infec/parastc 120, [place] [id number], diseasesEncounter [place] [address], [place] for suprvsn of [place], [place], tel:[phone] normal , [phone] [place], first , [place]. [id number]. trimesterEncounte tel: tel:[phone] r for [phone] screening of mother8 weeks gestation of [facility] [place] Candidiasis of Jan-0 Flynn Referring In Womens vulva and -201 Ashlyn. Provider: Mayco MARCOS, vaginaOther 6 700 [address] pruritus [place] Riggins, 1522, Center [facility] [place], , [facility], 120, [place] [id number], [facility], [place], tel:[phone] [place], , [place]. [id number]. tel: tel:[phone] Mary Ellen Nick Anogenital Arturo-0 Maddie Referring In Womens pruritus, -201 Kamini. Provider: Mayco MARCOS, unspecifiedVagina 6 700 [address] PO Box l Discharge or Medical Jolie L, 1522, Lesion Center [facility] [address] [place], [facility], 120, [place] [id number], [place], [facility], [place] 120, [place], tel:+ [phone] [place], , . [id number]. tel: tel: [phone] [facility] [place] Mar-3 Jolie Referring In Womens 0-201 Fabiola. Provider: Health [place], 5 700 [address] PO [address] Medical Jolie L, 1522, Center [address], [facility], 120, [place] [id number], [place], [facility], [place] 120, [place], tel:[phone] [place], , . [id number]. tel: tel: [phone] [facility] [place] Nov-2 Jolie In Womens 6-201 Fabiola. Health [place], 4 700 PO Box Medical 15[address], [place] [address] [place], [facility], 120, [id number], [place], [place], tel: [phone] , . tel: [phone] Family History Family Member Diagnosis Age At [...] Insurance type Covered alliance party ID Authorization(s) [facility] [id number] [facility] [id number] [facility] [id number] Social History Type Description Quantity Date Captured [...] Type Action Status Appointment Lashay Ley BOOKED Future Order: Radiology Order Ultrasound OB Follow-up ([id number]) Ordered Date Type Problem Goal Intervention Status [...]
[2017-04-07] MEDS ORDERED: CLINDAMYCIN PB 900 MG/50 ML BAG IV SCH (06:30)
[2017-04-07 06:45] VITALS: BMI 28.8
[2017-04-07] MEDS: LR 1,000 ML IV PRN ×2 (06:46→10:46)
[2017-04-07 06:55] VITALS: RESP 16
--- NOTE | 2017-04-07 09:03 | Anesthesia Preoperative Report ---
Anesthesia Epidural/Spinal Rec - Date and Time Date: 04/07/17 Procedure: Labor Epidural Plan: Epidural - Vital Signs Vital Signs: Temperature 98.2 F 04/07/17 06:56 Pulse Rate 106 H 04/07/17 06:56 Respiratory Rate 16 04/07/17 06:56 Blood Pressure 121/66 04/07/17 06:56 Pulse Oximetry 98 04/07/17 06:56 /Para: P:1 Heart Rate: 140 - Medictaions & Allergies Inpatient Medications: Current Medications Acetaminophen (Tylenol) 500 - 1,000 mg PO Q4H PRN PRN Reason: Pain Al Hydroxide/Mg Hydroxide (Maalox Plus) 30 ml PO Q3H PRN PRN Reason: Indigestion Calcium Carbonate (Tums) 500 - 1,000 mg PO Q2H PRN PRN Reason: Indigestion Carboprost Tromethamine (Hemabate) 250 mcg IM O PRN PRN Reason: .Downtime Clindamycin Phosphate (Cleocin Premix) 900 mg in 50 mls @ 50 mls/hr IV Q8H AMAIRANI Last Admin: 04/07/17 07:12 Dose: 50 mls/hr Dextrose/Lactated Ringer's (Dextrose 5%-Lactated Ringers) 1,000 mls @ 125 mls/ hr IV .Q8H PRN PRN Reason: Labor Last Admin: 04/07/17 06:48 Dose: 125 mls/hr Lactated Ringer's (Lactated Ringers) 1,000 mls @ 999 mls/hr IV .Q1H1M PRN Last Admin: 04/07/17 06:46 Dose: 999 mls/hr Oxytocin (Pitocin Drip) 30 unit in 500 mls @ 2 mls/hr IV .Q24H PRN; Protocol PRN Reason: Induction/Augmentation Last Admin: 04/07/17 06:47 Dose: 2 mls/hr Lidocaine HCl (Xylocaine-Mpf 1% Vial) 0.2 mg ID O PRN PRN Reason: IV Start Methylergonovine Maleate (Methergine) 0.2 mg IM O PRN Misoprostol (Cytotec) 800 mcg RI ONCE PRN Allergies/Adverse Reactions: Allergies Allergy/AdvReac Type Severity Reaction Status Date / Time Penicillins Allergy Unknown Verified 05/15/14 13:55 - Home Medications Home Medications: Home Medications Medication Instructions Recorded Confirmed Type Vitamins 1 tab ORAL INH DAILY 03/18/17 04/07/17 History DiphenhydrAMINE [Benadryl] 1 cap PO DAILY 04/07/17 04/07/17 History - Medical History Other History: Reports: Now - Surgical History Anesthesia Reactions: None Hx Family Anesthesia Reaction: No History of Motion Sickness: No - Social History Smoking Status: Never smoker Second Hand Exposure: No Substance Use Type: does not use Alcohol Intake Frequency: does not drink Hx Chewing Tobacco Use: No - Pertinent Findings Lab Data: CBC and BMP 04/07/17 06:31 EKG Rhythm: Normal Sinus Rhythm - Physical Exam Respiratory Exam: lungs clear Cardiovascular Exam: regular rate and rhythm - Airway Assessment Mallampati Score: II TMD: 3 Fingerbreadths Neck Extension: good Overall Assessment: may be difficult intubation - ASA ASA Score: 2 - Discussion Discussion: Discussed risks/options/alternatives of anesthesia and questions answered. Patient consents. Nursing pain assessment noted. Anesthesia Discussion: spouse, family member Attestation Statement: Prior to the delivery of any anesthetic medication, I examined the patient, developed the plan, obtained the patient's consent and discussed the risk and benefits of the procedure with the patient/guardian.
[2017-04-07] MEDS ORDERED: NALOXONE 0.4 MG/ML INJECTION IVP PRN (10:37)
[2017-04-07] MEDS ORDERED: DiphenhydrAMINE 50 MG/ML INJECTION IVP PRN (10:37)
[2017-04-07] MEDS ORDERED: ONDANSETRON 4 MG/2 ML INJECTION IVP PRN (10:37)
[2017-04-07] MEDS ORDERED: ROPIVACAINE 1% 10MG/ML INJ 200 MG, SUFentanil 50 MCG in NS 100 ML EPI PRN (10:37)
[2017-04-07] MEDS ORDERED: DiphenhydrAMINE 25 MG CAPSULE PO PRN ×2 (14:13→14:20)
[2017-04-07] MEDS ORDERED: SALINE FLUSH 10ml SYRINGE IV PRN ×2 (14:13→14:20)
[2017-04-07] MEDS ORDERED: HYDROCODONE/APAP 5mg/325mg TABLET PO PRN ×2 (14:13→14:20)
[2017-04-07] MEDS ORDERED: HYDROCORTISONE 2.5% CREAM 30gm RECTALLY PRN ×2 (14:13→14:20)
[2017-04-07] MEDS ORDERED: OXYTOCIN DRIP 30 UNIT/500 ML ML IV SCH ×2 (14:15→14:20)
[2017-04-07] MEDS ORDERED: IBUPROFEN 800 MG TABLET PO SCH (14:20)
--- NOTE | 2017-04-07 14:27 | Labor and Delivery Note ---
DATE 04/07/2017 Mrs. Ley progressed very well and very rapidly in first stage of labor. She pushed for one contraction, delivering the head in the OA presentation. Baby was bulb suctioned on the perineum. With a further push, baby delivered in total. Baby was then further bulb suctioned and placed on mother's abdomen. After a few moments, the cord was doubly clamped, it was cut by the patient's mother. This is a liveborn male with Apgars of 8//9, weighing 8 pounds, 2.5 ounces. The placenta delivered shortly thereafter. It delivered spontaneously with a normal configuration and normal-appearing three-vessel cord. Total blood loss was approximately 300 mL . There was a secondary midline laceration that was repaired in the usual fashion with a 2-0 Vicryl. At the time of this dictation, mother and baby are doing well. [facility]
[2017-04-07] MEDS: IBUPROFEN 800 MG TABLET PO SCH (14:41)
[2017-04-07] MEDS ORDERED: Oxycodone/Acetaminophen 5/325 1 TAB PO PRN (14:48)
[2017-04-08] MEDS: IBUPROFEN 800 MG TABLET PO SCH ×2 (00:56→09:09)
--- NOTE | 2017-04-08 08:25 | Anesthesia Postoperative Note ---
- Date and Time Date: 04/08/17 Time: 08:24 - Status Vital Signs: Temperature 97.6 F 04/08/17 05:00 Pulse Rate 76 04/08/17 05:00 Respiratory Rate 16 04/08/17 05:00 Blood Pressure 114/56 04/08/17 05:00 Pulse Oximetry 98 04/08/17 05:00 Respiratory Function: Airway Patent EKG: Sinus Rhythm Mental Status: Alert and Oriented Pain Intensity: 3 Hydration: Taking PO Fluids Complications During Recover: None Apparent - Follow-Up Instructions Instructions: Per Surgeon
--- NOTE | 2017-04-08 08:35 | OB/GYN Progress Note ---
OB-PP Progress Note - General PPD1 Maternal Group B Strep: Positive Maternal blood type: A+ Maternal Rubella Status: Immune - Subjective Date: 04/08/17 Lochia: Minimal Pain: contolled Voiding: voiding Nausea or Vomiting Present: No - Objective Vital Signs: Last Vital Signs Temp 97.6 F 04/08/17 05:00 Pulse 76 04/08/17 05:00 Resp 16 04/08/17 05:00 BP 114/56 04/08/17 05:00 Pulse Ox 98 04/08/17 05:00 General: alert and oriented Abdomen: fundus firm, non-tender Edema: none - Assessment Assessment: SP, , GBS positive - Plan Plan: routine care Expected date of discharge: 04/08/17 Pt would like to be dismissed to Boarding Status.
--- NOTE | 2017-04-08 08:37 | Discharge Instructions ---
Discharge Plan - Med Rec/Dispo Prescriptions: New Docusate Calcium [Surfak] 240 mg PO DAILY #30 cap Ibuprofen [Motrin] 800 mg PO Q8H #30 tab Oxycodone/APAP 5/325 [Percocet 5/325] 1 tab PO Q4H PRN #10 tab PRN Reason: Pain No Action Vitamins 1 tab ORAL INH DAILY DiphenhydrAMINE [Benadryl] 1 cap PO DAILY - Disposition 01 Discharged Home, Self-Care
[2017-04-08] MEDS ORDERED: PRENATAL VITAMIN TABLET PO SCH ×3 (09:00)
[2017-04-08] MEDS ORDERED: DOCUSATE CALCIUM 240 MG CAPSULE PO SCH ×2 (09:00)
[2017-04-08 09:30] VITALS: O2SAT 97
[2017-04-08 13:16] VITALS: BP 106/55; PULSE 84; TEMP 98
== END 2017-04-08 14:49 | disposition home or self-care (01) | DRG 775 ==
LOC: MC 06:15
PROVIDERS: ADMIT Obstetrics & Gynecology; ATTEND Obstetrics & Gynecology